=== PATIENT | male | born 1975 | race Caucasian/White ===

== ENCOUNTER 2021-06-25 14:36 | Outpatient (REF) | payer OTHER, SELFPAY ==
[2021-06-25 16:06] LABS: COVID-19 Test Negative (Negative); IDNOW Serial# 16C4AD1C
== END 2021-06-25 14:37 | disposition home or self-care (01) ==
LOC: HO.LAB 14:36
PROVIDERS: Visit Provider Internal Medicine
DX: Z20.822 Contact with and (suspected) exposure to COVID-19 (principal)
CPT/HCPCS: 36415; 87635; C9803

== ENCOUNTER 2023-06-07 09:11 | Emergency (ER) | payer OTHER, SELFPAY ==
--- NOTE | ~2023-06-07 | US_ITS ---
EXAMINATION: US ABDOMEN LIMITED CLINICAL INFORMATION: Right upper quadrant pain after eating. COMPARISON: None available. TECHNIQUE: Real-time imaging of the right upper quadrant abdominal viscera. FINDINGS: PANCREAS: The pancreas is obscured by bowel gas. LIVER: Normal. The liver is normal in size. The liver contour is normal. Parenchymal echogenicity is normal. No focal hepatic lesion. There is no intrahepatic biliary duct dilatation seen. GALLBLADDER: Normal. The gallbladder is physiologically distended without evidence of stones, sludge, polyps, wall thickening or pericholecystic fluid. No sonographic Gomez's sign. COMMON BILE DUCT: Normal in caliber measuring 0.3 cm in diameter. RIGHT KIDNEY: Normal. No hydronephrosis. No renal calculi. 1.1 x 1.3 x 1.9 cm simple exophytic cyst is seen in the mid kidney. No imaging follow-up is recommended. The kidney measures 10.3 cm in maximum dimension. FREE FLUID: None. US/US abdomen limited IMPRESSION: No abnormality demonstrated.
[2023-06-07 09:22] VITALS: BP 122/89; PULSE 101; RESP 16; TEMP 36.1; O2SAT 98; BMI 30.4
[2023-06-07 09:34] LABS: MANUAL DIFF FLAG NO
[2023-06-07 09:35] LABS: Basophils Absolute Auto 0.1 X10*3/uL (0.0-0.2); Basophils Percent Auto 0.6 % (0-2); Eosinophils Absolute Auto 0.1 X10*3/uL (0.0-0.4); Eosinophils Percent Auto 0.9 % (0-4); Hematocrit 44.4 % (42.0-52.0); Hemoglobin 14.4 g/dl (14.0-18.0); Imm Gran Abs Auto 0.03 X10*3/uL (0.00-0.03); Imm Gran Pct Auto 0.4 % (0.0-0.4); Lymphocytes Absolute Auto 2.6 X10*3/uL (1.2-4.9); Lymphocytes Percent Auto 30.4 % (20-40); Mean Corpuscular HGB Conc 32.4 g/dl (31.0-36.0); Mean Corpuscular Hemoglobin 27.1 pg (27.0-33.0); Mean Corpuscular Volume 83.5 fL (80.0-98.0); Mean Platelet Volume 10.5 fL (9.4-12.4); Monocytes Absolute Auto 0.7 X10*3/uL (0.1-1.2); Neutrophils Absolute Auto 5.1 x10*3/uL (2.0-8.3); Neutrophils Percent Auto 59.7 % (45-73); Platelet Count 254 X10*3/uL (160-400); Red Blood Count 5.32 X10*6/uL (4.60-5.80); Red Cell Distribution Width 13.5 % (11.0-16.0); White Blood Count 8.5 X10*3/uL (4.8-10.8)
[2023-06-07 09:52] LABS: Alanine Aminotransferase 50 U/L (0-40); Albumin Level 4.6 g/dL (3.5-5.0); Alkaline Phosphatase 70 U/L (39-117); Anion Gap 15 (12-20); Aspartate Amino Transferase 25 U/L (5-37); Bilirubin Total 0.7 mg/dL (0.0-1.0); Blood Urea Nitrogen 21 mg/dL (9-16); Calcium 9.6 mg/dL (8.4-10.2); Carbon Dioxide 26 mmol/L (22-29); Chloride 104 mmol/L (96-108); Creatinine Clr Calc Pharmacy 115.9; Estimated Glomerular Filt Rate > 60; Glucose Random 108 mg/dL (60-115); Sodium 141 mmol/L (135-145); Total Protein 7.5 g/dL (6.5-8.0)
[2023-06-07 10:08] VITALS: BP 142/70; PULSE 93; RESP 16; O2SAT 94
[2023-06-07 10:16] LABS: Appearance Urine Clear; Color Urine Yellow; Glucose Urine UA Negative (Negative); Leukocyte Esterase Urine Negative (Negative); Nitrite Urine Negative (Negative); Specific Gravity - Urine 1.015 (1.005-1.025); Urine Blood Negative (Negative); Urine Ketones Negative (Negative); Urine Protein Negative (Neg-Trace)
[2023-06-07 10:21] LABS: Bacteria Urine None Seen (None Seen); Hyaline Casts Urine 0-2 /LPF (0-2); RBC Urine 0-2 /HPF (0-2); Squamous Epithelial Cell Urine 0-2 /HPF (0-2); WBC Urine 0-5 /HPF (0-5)
--- NOTE | 2023-06-07 12:03 | ED.GENADULT ---
HPI - General Adult General Chief complaint: Abdominal Pain Stated complaint: r side abd pain Time Seen by Provider: 06/07/23 11:20 Source: patient Mode of arrival: ambulatory Limitations: no limitations History of Present Illness HPI narrative: 47-year-old male presents for evaluation of right upper and lower abdominal pain ( mostly upper)for the past 10 days. He describes the pain as achy and occasionally sharp. The pain is worse shortly after eating. The pain does not radiate to the back, groin, or legs. No fevers or chills. No nausea, vomiting, or diarrhea. He says he was constipated for 2 days this week but had a BM shortly after taking a laxative. No blood in stools. No dysuria or hematuria. No chest pain, palpitations, cough, or shortness of breath. He denies alcohol use. He denies a history of abdominal surgery. He denies travel and sick contacts. PCP office advised him to come in for an [place] or [facility] Related Data Previous Rx's Medication Instructions Recorded ketorolac 10 mg tablet 10 mg PO TID PRN pain 5 days #15 06/07/23 tabs Allergies Allergy/AdvReac Type Severity Reaction Status Date / Time No Known Allergies Allergy Verified 06/07/23 09:25 Review of Systems Review of Systems: Constitutional : No Weight loss, No Fever, No Chills, No Fatigue, No Malaise ENT/Mouth : No sore throat, No Rhinorrhea Eyes: No Eye Pain, No Swelling, No Redness Cardiovascular : No Chest Pain, No SOB, No Dyspnea on Exertion, No Orthopnea, No Edema, No Palpitations Respiratory : No Cough, No Sputum, No Wheezing Gastrointestinal : No Nausea, No Vomiting, No Diarrhea, No Constipation, + abdominal Pain, No Hematochezia, No Melena Genitourinary : No Dysuria, No Urinary Frequency, No Hematuria, Musculoskeletal : No joint pain, No Myalgias, No Joint Swelling Skin : No Skin Lesions, No rash Neuro : No Weakness, No Numbness, No Dizziness, No Headache Psych : No Anxiety/Panic, No Depression All other systems reviewed and are negative Yes all other systems are reviewed and are negative PMFSH Past Medical History Attestation statement: The following information was validated with the patient. Source: old records reviewed and nursing notes reviewed Social History Social History Advance Directives: No Advance Directives Information Provided: No Physical Exam ED Vital Signs: Vital Signs - 24 hr 06/07/23 09:22 06/07/23 10:08 06/07/23 14:29 Temperature 96.9 F Pulse Rate 101 H 93 80 Respiratory Rate 16 16 16 Blood Pressure 122/89 142/70 H 106/42 L Pulse Oximetry 98 94 95 Oxygen Delivery Method Room Air Room Air Room Air BMI result Body Mass Index 30.4 vss Appearance: Alert.? Oriented X3.? No acute distress.? Head: Normocephalic, atraumatic, no step-offs or deformities Eyes: Pupils equal, round and reactive to light. Neck: Normal inspection.? Neck supple.? CVS: Normal heart rate and rhythm.? Pulses normal.? Respiratory: No respiratory distress.? Breath sounds normal.? Abdomen: Soft and nontender.?Normal bowel sounds. Negative Gomez's, McBurney's, and Rosving's. Skin: Skin warm and dry.? Normal skin color.? Normal skin turgor.? Extremities: No lower extremity edema.? No calf ttp. 5/5 strength to bilateral upper and lower extremities Back: No midline tenderness, no C-spine tenderness, full range of motion, no CVA tenderness bilaterally Neuro: Oriented X 3.? No motor deficit.? No sensory deficit. CN 2-12 intact Course Reevaluation(s) Reevaluation #1: CBC unremarkable. Chemistry no acute findings requiring intervention. Normal transaminases. UA with no infection. Ultrasound abdomen no abnormality. Patient reports complete resolution of pain after Toradol. I advised him to follow-up with general surgery of right upper quadrant pain continues to bother him . Educated patient on diagnosis and treatment plan, answered all question, patient verbalizes understanding. At this time patient will be discharged home, advised to return with new or worsening symptoms. Educated on worrisome signs and symptoms and when to return. At this time I feel comfortable discharge home. On re-evaluation completely nontender abdomen. Tolerating p.o. Time: 14:45 Medications Administered Discontinued Medications Generic Name Dose Route Start Last Admin Trade Name Freq PRN Reason Stop Dose Admin Ketorolac Tromethamine 30 mg 06/07/23 12:38 06/07/23 12:56 Ketorolac Tromethamine 15 Mg/Ml Vial IVPUSH 06/07/23 12:39 30 mg ONCE ONE Administration Medical Decision Making Medical Decision Making [facility] Narrative: 47-year-old male presents for 10 days of right-sided abdominal pain PE benign Likely gastritis, biliary colic, cholelithiasis, gastroenteritis, peptic ulcer disease, GERD unlikely hepatitis, apendiciits, cholecystits, pancreatitis, choledocolithisis, diverticulitis, nephrolithiasis, UTI, acute abdomen, perforation, SBO, LBO. Will rule out metabolic derangements Plan: Labs, UA, imaging Differential Diagnosis Differential Diagnoses: The differential diagnosis associated with the presentation includes Likely gastritis, biliary colic, cholelithiasis, gastroenteritis, peptic ulcer disease, GERD unlikely hepatitis, apendicitis, cholecystits, pancreatitis, choledocolithisis, diverticulitis, nephrolithiasis, UTI, acute abdomen, perforation, SBO, LBO. Will rule out metabolic derangements Admission/Observation Consideration of admission/observation: Escalation of care including admission/observation considered unlikely Lab Data [facility] Lab Attestation statement: I reviewed the patient's lab results. 06/07/23 09:31 06/07/23 09:31 Labs: Lab Results 06/07/23 06/07/23 Range/Units 09:31 10:10 WBC 8.5 (4.8-10.8) X10*3/uL RBC 5.32 (4.60-5.80) X10*6/uL Hgb 14.4 (14.0-18.0) g/dl Hct 44.4 (42.0-52.0) % MCV 83.5 (80.0-98.0) fL MCH 27.1 (27.0-33.0) pg MCHC 32.4 (31.0-36.0) g/dl RDW 13.5 (11.0-16.0) % Plt Count 254 (160-400) X10*3/uL MPV 10.5 (9.4-12.4) fL Immature Gran % (Auto) 0.4 (0.0-0.4) % Neut % (Auto) 59.7 (45-73) % Lymph % (Auto) 30.4 (20-40) % [place] % (Auto) 8.0 (2-11) % Eos % (Auto) 0.9 (0-4) % Baso % (Auto) 0.6 (0-2) % Lymph # (Auto) 2.6 (1.2-4.9) X10*3/uL [place] # (Auto) 0.7 (0.1-1.2) X10*3/uL Eos # (Auto) 0.1 (0.0-0.4) X10*3/uL Baso # (Auto) 0.1 (0.0-0.2) X10*3/uL Abs Immat Gran (auto) 0.03 (0.00-0.03) X10*3/uL Absolute Neuts (auto) 5.1 (2.0-8.3) x10*3/uL Absolute Nucleated RBC 0.000 (0.0-0.012) X10*3/uL Nucleated RBC % (auto) 0.0 (0.0-0.2) /100WBC Sodium 141 (135-145) mmol/L Potassium 4.0 (3.3-5.1) mmol/L Chloride 104 (96-108) mmol/L Carbon Dioxide 26 (22-29) mmol/L Anion Gap 15 (12-20) BUN 21 H (9-16) mg/dL Creatinine 0.88 (0.5-1.4) mg/dL Estim Creat Clear Calc 115.9 Estimated GFR > 60 Random Glucose 108 (60-115) mg/dL Calcium 9.6 (8.4-10.2) mg/dL Total Bilirubin 0.7 (0.0-1.0) mg/dL AST 25 (5-37) U/L ALT 50 H (0-40) U/L Alkaline Phosphatase 70 (39-117) U/L Total Protein 7.5 (6.5-8.0) g/dL Albumin 4.6 (3.5-5.0) g/dL Urine Color Yellow Urine Appearance Clear Urine pH 6.0 (5.0-9.0) Ur Specific [place] 1.015 (1.005-1.025) Urine Protein Negative (Neg-Trace) mg/dL Urine Glucose (UA) Negative (Negative) mg/dL Urine Ketones Negative (Negative) mg/dL Urine Blood Negative (Negative) Urine Nitrite Negative (Negative) Ur Leukocyte Esterase Negative (Negative) Urine RBC 0-2 (0-2) /HPF Urine WBC 0-5 (0-5) /HPF Ur Squamous Epith Cells 0-2 (0-2) /HPF Urine Bacteria None Seen (None Seen) Hyaline Casts 0-2 (0-2) /LPF Independent Interpretation I performed an independent interpretation of an: Ultrasound ( US/US abdomen limited IMPRESSION: No abnormality demonstrated.) Radiology Impression Discussion of test interpretation with radiology: I have reviewed the radiologist's reading. Prescription Management I considered prescription management with: Pain Medication (toradol ) Discharge Plan Discharge Clinical Impression: Abdominal pain Patient Disposition: Home, Self-Care Instructions: Abdominal Pain (ED) Additional Instructions: Take your medications as prescribed. If you were prescribed antibiotics today, it is important that you take your medication to their entirety, do not skip any doses, do not finish them early. Follow-up with your primary care provider this week. Return to the emergency department with new or worsening symptoms. Such as fevers, chills, chest pain, shortness of breath, nausea, vomiting, dizziness, headache, vision changes, lethargy In case of emergency call 911 Toradol has been sent to your pharmacy, you tolerated this well in the department. Please take this as prescribed do not take this with ibuprofen, or other NSAIDs, do not mix this with alcohol. Side effects of this medication including increased risk for bleeding and possible kidney injury. US/US abdomen limited IMPRESSION: No abnormality demonstrated. Prescriptions: New ketorolac 10 mg tablet 10 mg PO TID PRN (Reason: pain) 5 Days Qty: 15 0RF Referrals: [facility] [place] [facility] [place]Provider Group] - 1 week [facility] [place] [facility] [place]Provider Group] - 2 weeks Chaparro Owusu PA [Primary Care Provider] - 2 days
[2023-06-07] MEDS: Ketorolac Tromethamine 15 MG/ML VIAL 30 MG IVPUSH (12:56)
[2023-06-07 14:29] VITALS: BP 106/42; PULSE 80; RESP 16; O2SAT 95
[2023-06-07 15:11] LABS: Lipase 29 U/L (8-78)
== END 2023-06-07 15:10 | disposition home or self-care (01) ==
PROVIDERS: Physician Assistant; Emergency Provider Student in an Organized Health Care Education/Training Program; PCP Physician Assistant Medical
DX: R10.11 Right upper quadrant pain (principal); K59.00 Constipation, unspecified; Z79.899 Other long term (current) drug therapy
CPT/HCPCS: 36415; 76705; 80053; 81001; 83690; 85025; 96374; 99283; 99284; J1885

== ENCOUNTER 2024-09-07 01:48 | Emergency (ER) | payer BC, SELFPAY ==
--- NOTE | ~2024-09-07 | XR_ITS ---
CLINICAL HISTORY: Cough 1 view chest x-ray. Comparison: None Findings: No consolidation, pneumothorax, or effusion. Heart size normal. Pulse generator visualized over the right chest with the lead coursing toward the right neck. Impression: 1. No acute cardiopulmonary process. No focal pulmonary consolidation. This document has been electronically signed by: Juaquin Kasper MD on 09/07/2024 02:44:55
[2024-09-07 01:50] VITALS: BP 119/71; PULSE 90; RESP 18; TEMP 36.8; O2SAT 96; BMI 31.5
--- NOTE | 2024-09-07 01:54 | ECG_ITS ---
Test Reason : CP Blood Pressure : */* mmHG Vent. Rate : 76 BPM Atrial Rate : 76 BPM P-R Int : 132 ms QRS Dur : 100 ms QT Int : 382 ms P-R-T Axes : 41 -11 18 degrees QTcB Int : 429 ms Normal sinus rhythm Incomplete right bundle branch block Borderline ECG No previous ECGs available Referred By: Generic ED Physician Electronically Signed By: CHRISTEN DANIELSON
[2024-09-07 02:09] LABS: Basophils Absolute Auto 0.1 X10*3/uL (0.0-0.2); Basophils Percent Auto 0.8 % (0-2); Eosinophils Absolute Auto 0.2 X10*3/uL (0.0-0.4); Eosinophils Percent Auto 3.6 % (0-4); Hematocrit 42.1 % (42.0-52.0); Hemoglobin 13.8 g/dl (14.0-18.0); Imm Gran Abs Auto 0.02 X10*3/uL (0.00-0.03); Imm Gran Pct Auto 0.3 % (0.0-0.4); Lymphocytes Absolute Auto 2.3 X10*3/uL (1.2-4.9); Lymphocytes Percent Auto 34.1 % (20-40); MANUAL DIFF FLAG NO; Mean Corpuscular HGB Conc 32.8 g/dl (31.0-36.0); Mean Corpuscular Volume 82.4 fL (80.0-98.0); Mean Platelet Volume 10.7 fL (9.4-12.4); Monocytes Absolute Auto 0.8 X10*3/uL (0.1-1.2); Monocytes Percent Auto 12.7 % (2-11); Neutrophils Absolute Auto 3.2 x10*3/uL (2.0-8.3); Neutrophils Percent Auto 48.5 % (45-73); Platelet Count 240 X10*3/uL (160-400); Red Blood Count 5.11 X10*6/uL (4.60-5.80); Red Cell Distribution Width 13.1 % (11.0-16.0); White Blood Count 6.6 X10*3/uL (4.8-10.8)
--- NOTE | 2024-09-07 02:14 | ED_ITS ---
HPI - Chest Pain General Chief Complaint: Chest Pain Stated Complaint: chest pain Time Seen by Provider: 09/07/24 02:12 Source: patient Mode of arrival: ambulatory Limitations: no limitations History of Present Illness ED Provider: HPI narrative: Patient with no significant coronary risk factor been coughing mostly dry for last 2 days went to sleep woke up around midnight with mid chest pain which is constant nature no radiation pain no relation of the pain with the breathing patient was not coughing at this time never had similar pain in the past Related Data Previous Rx's ?Medication ?Instructions ?Recorded ketorolac 10 mg tablet 10 mg PO TID PRN pain 5 days #15 06/07/23 tabs ibuprofen 600 mg tablet 600 mg PO Q6H PRN fever or pain 09/07/24 #30 tabs Allergies Allergy/AdvReac Type Severity Reaction Status Date / Time No Known Allergies Allergy Verified 09/07/24 01:52 Review of Systems 2 Review of Systems: Yes all other systems are reviewed and are negative PMFSH Social History Social History Smoked in Last 30 Days: No Use of substances other than those prescribed or required for medical reasons: No Advance Directives: No Do you have a plan to hurt others: No Plan Physical Exam 2 Vital Signs: Vital Signs: Last Vital Signs Temp 98.3 F 09/07/24 05:16 Pulse 77 09/07/24 05:16 Resp 16 09/07/24 05:16 BP 111/65 09/07/24 05:16 Pulse Ox 98 09/07/24 05:16 O2 Del Method Room Air 09/07/24 05:16 BMI result Body Mass Index 31.5 Appearance: Alert. Oriented X3. No acute distress. Eyes: No pallor or icterus ENT: Pharynx normal. Oral Mucosa moist Neck: Normal inspection. Neck supple. CVS: Normal heart rate and rhythm. Pulses normal. Respiratory: No respiratory distress. Equal air entry bilateral, no wheezing/rales/rhonchi Abdomen: Soft and nontender. Bowel sounds are present, no mass palpable, no CVA tenderness Skin: Skin warm and dry. Normal skin color. Normal skin turgor. Extremities: No lower extremity edema. No calf tenderness Neuro: Oriented X 3. No motor deficit. Medical Decision Making Medical Decision Making [facility] Narrative: Patient has atypical chest pain with heart score of 0 2 sets of cardiac enzymes negative EKG without any ischemic changes will discharge patient home advised to follow up with PCP Differential Diagnosis Differential Diagnoses: The differential diagnosis associated with the presentation includes Lab Data [facility] Lab Attestation statement: I reviewed the patient's lab results. 09/07/24 02:04 09/07/24 02:04 Labs: Lab Results 09/07/24 09/07/24 09/07/24 Range/Units 02:04 03:00 03:59 WBC 6.6 (4.8-10.8) X10*3/uL RBC 5.11 (4.60-5.80) X10*6/uL Hgb 13.8 L (14.0-18.0) g/dl Hct 42.1 (42.0-52.0) % MCV 82.4 (80.0-98.0) fL MCH 27.0 (27.0-33.0) pg MCHC 32.8 (31.0-36.0) g/dl RDW 13.1 (11.0-16.0) % Plt Count 240 (160-400) X10*3/uL MPV 10.7 (9.4-12.4) fL Immature Gran % (Auto) 0.3 (0.0-0.4) % Neut % (Auto) 48.5 (45-73) % Lymph % (Auto) 34.1 (20-40) % [place] % (Auto) 12.7 H (2-11) % Eos % (Auto) 3.6 (0-4) % Baso % (Auto) 0.8 (0-2) % Lymph # (Auto) 2.3 (1.2-4.9) X10*3/uL [place] # (Auto) 0.8 (0.1-1.2) X10*3/uL Eos # (Auto) 0.2 (0.0-0.4) X10*3/uL Baso # (Auto) 0.1 (0.0-0.2) X10*3/uL Abs Immat Gran (auto) 0.02 (0.00-0.03) X10*3/uL Absolute Neuts (auto) 3.2 (2.0-8.3) x10*3/uL Absolute Nucleated RBC 0.000 (0.0-0.012) X10*3/uL Nucleated RBC % (auto) 0.0 (0.0-0.2) /100WBC Sodium 144 (135-145) mmol/L Potassium 3.8 (3.3-5.1) mmol/L Chloride 112 H (96-108) mmol/L Carbon Dioxide 25 (22-29) mmol/L Anion Gap 11 L (12-20) BUN 29 H (9-16) mg/dL Creatinine 0.90 (0.5-1.4) mg/dL Estim Creat Clear Calc 114.0 Estimated GFR > 60 Random Glucose 120 H (60-115) mg/dL Calcium 9.3 (8.4-10.2) mg/dL Total Bilirubin 0.3 (0.0-1.0) mg/dL AST 31 (5-37) U/L ALT 42 H (0-40) U/L Alkaline Phosphatase 81 (39-117) U/L Troponin I High Sens < 2.7 < 2.7 (<3.5-35.0) ng/L Total Protein 6.9 (6.5-8.0) g/dL Albumin 4.0 (3.5-5.0) g/dL Influenza Type A (PCR) NEGATIVE (Negative) Influenza Type B (PCR) NEGATIVE (Negative) RSV RNA Qual (PCR) NEGATIVE (Negative) SARS-CoV-2 RNA (RT-PCR) NEGATIVE (Negative) S. pyogenes GrpA QUENTIN Negative (Negative) Independent Interpretation I performed an independent interpretation of an: EKG Interpretation: Normal sinus rhythm heart rate 76 beats per minute incomplete right bundle- branch block no acute ST-T changes no acute ischemia Discharge Plan Discharge Clinical Impression: Chest pain Patient Disposition: Home, Self-Care Instructions: Chest Pain (DC) Additional Instructions: Your chest pain is likely musculoskeletal Follow up with your PCP for further evaluate Ibuprofen for pain as needed Prescriptions: New ibuprofen 600 mg tablet 600 mg PO Q6H PRN (Reason: fever or pain) Qty: 30 0RF No Action ketorolac 10 mg tablet 10 mg PO TID PRN (Reason: pain) 5 Days Qty: 15 0RF Interventions: ED Discharge Assessment Last Done: 09/07/24 05:16 Discharge Date/Time: 09/07/24 05:17 Print Language: Hungarian
[2024-09-07 02:29] LABS: Alanine Aminotransferase 42 U/L (0-40); Anion Gap 11 (12-20); Aspartate Amino Transferase 31 U/L (5-37); Bilirubin Total 0.3 mg/dL (0.0-1.0); Blood Urea Nitrogen 29 mg/dL (9-16); Calcium 9.3 mg/dL (8.4-10.2); Carbon Dioxide 25 mmol/L (22-29); Chloride 112 mmol/L (96-108); Estimated Glomerular Filt Rate > 60; Glucose Random 120 mg/dL (60-115); Potassium 3.8 mmol/L (3.3-5.1); Sodium 144 mmol/L (135-145); Total Protein 6.9 g/dL (6.5-8.0); Troponin-I High Sensitivity < 2.7 ng/L (<3.5-35.0)
[2024-09-07 02:45] LABS: Influenza A PCR NEGATIVE (Negative); Influenza B PCR NEGATIVE (Negative); Resp Syncy Virus RNA Qual PCR NEGATIVE (Negative); SARS COV2 PCR INHOUSE NEGATIVE (Negative)
[2024-09-07 02:48] LABS: Alkaline Phosphatase 81 U/L (39-117)
[2024-09-07 03:00] VITALS: PULSE 72
[2024-09-07 03:25] LABS: IDNOW Serial# 58CA691E; Strep A Nucleic Acid Negative (Negative)
[2024-09-07 04:27] LABS: Troponin-I High Sensitivity < 2.7 ng/L (<3.5-35.0)
[2024-09-07 05:16] VITALS: BP 111/65; PULSE 77; RESP 16; TEMP 36.8; O2SAT 98
== END 2024-09-07 05:17 | disposition home or self-care (01) ==
PROVIDERS: Emergency Provider Internal Medicine; PCP Physician Assistant Medical
DX: R07.9 Chest pain, unspecified (principal); R05.9 Cough, unspecified; Z03.818 Encounter for observation for suspected exposure to other biological agents ruled out
CPT/HCPCS: 0241U; 36415; 71045; 80053; 84484; 85025; 87651; 93005; 99283; 99285

== ENCOUNTER → 2024-09-07 01:54 | Outpatient (BNV) | payer BC, SELFPAY | PROVIDERS: Emergency Provider Internal Medicine; PCP Physician Assistant Medical; Visit Provider Internal Medicine | DX: I45.10 Unspecified right bundle-branch block (principal) | CPT/HCPCS: 93010 ==

== ENCOUNTER → 2024-09-07 02:00 | Outpatient (BNV) | payer BC, SELFPAY | PROVIDERS: Emergency Provider Internal Medicine; PCP Physician Assistant Medical; Visit Provider Radiology Diagnostic Radiology | DX: R05.9 Cough, unspecified (principal) | CPT/HCPCS: 71045 ==

== ENCOUNTER → 2024-12-09 13:31 | Outpatient (BNVA) | payer SELFPAY | PROVIDERS: PCP Physician Assistant Medical; Visit Provider Physician Assistant Medical | DX: Z02.79 Encounter for issue of other medical certificate (principal) ==